=== PATIENT | female | born 1990 | race Caucasian/White ===

== ENCOUNTER 2018-07-02 07:49 | Emergency (ER) | payer OTHER ==
[2018-07-02] MEDS: IBUPROFEN 800 MG TAB PO (08:36)
[2018-07-02] MEDS: ACETAMINOPHEN 500 MG TAB PO (08:37)
== END 2018-07-02 08:54 | disposition home or self-care (01) ==
LOC: FTE 07:49
DX: H66.91 Otitis media, unspecified, right ear (principal); R09.81 Nasal congestion; J45.909 Unspecified asthma, uncomplicated; F17.210 Nicotine dependence, cigarettes, uncomplicated
CPT/HCPCS: 99283; Z7502

== ENCOUNTER 2018-07-31 23:07 | Emergency (ER) | payer OTHER | END 2018-08-01 02:11 | disposition home or self-care (01) | LOC: FTE 23:07 | DX: S61.211A Laceration without foreign body of left index finger without damage to nail, initial encounter (principal); X83.8XXA Intentional self-harm by other specified means, initial encounter; Y92.9 Unspecified place or not applicable | CPT/HCPCS: 12001; 99283-25 ==

== ENCOUNTER 2018-10-29 14:47 | Inpatient (IN) | payer OTHER ==
[2018-10-29] MEDS: SOD CHLORIDE 0.9% 1,000 ML IV ×2 (16:21→19:28)
[2018-10-29] MEDS: ONDANSETRON 4 MG INJ IV (16:21)
[2018-10-29] MEDS: KETOROLAC 15 MG INJ IV (16:25)
[2018-10-29 16:28] LABS: ADD MAN DIFF? NO
[2018-10-29 16:32] LABS: ABNORMAL IP MESSAGE 1; BASOPHIL # 0.1 10^3/ul (0.0-0.1); BASOPHILS % 0.5 % (0.0-2.0); EOSINOPHILS # 0.4 10^3/ul (0.0-0.5); EOSINOPHILS % 4.5 % (0.0-7.0); HEMATOCRIT 40.5 % (37.0-47.0); HEMOGLOBIN 14.2 g/dl (12.0-16.0); LYMPHOCYTES # 2.3 10^3/ul (0.8-2.9); LYMPHOCYTES % 23.7 % (15.0-51.0); MEAN CORPUSCULAR HEMOGLOBIN 30.3 pg (29.0-33.0); MEAN CORPUSCULAR HGB CONC 35.1 g/dl (32.0-37.0); MEAN CORPUSCULAR VOLUME 86.5 fl (82.0-101.0); MEAN PLATELET VOLUME 13.3 fl (7.4-10.4); MONOCYTE # 0.4 10^3/ul (0.3-0.9); MONOCYTES % 4.3 % (0.0-11.0); NEUTROPHIL # 6.5 10^3/ul (1.6-7.5); NEUTROPHILS % 66.8 % (39.0-77.0); PLATELET COUNT 113 10^3/UL (140-415); RED BLOOD COUNT 4.68 10^6/ul (4.20-5.40); RED CELL DISTRIBUTION WIDTH 12.5 % (11.5-14.5)
[2018-10-29 16:32] LABS: WHITE BLOOD COUNT 9.7 10^3/ul (4.8-10.8)
[2018-10-29 16:40] LABS: ADD UMIC NO; UR ASCORBIC ACID NEGATIVE (NEGATIVE); UR BACTERIA FEW /HPF (NONE SEEN); UR BILIRUBIN (Dip) NEGATIVE (NEGATIVE); UR BLOOD (Dip) NEGATIVE (NEGATIVE); UR CLARITY SLIGHTLY CLOUDY (CLEAR); UR COLOR YELLOW (YELLOW); UR GLUCOSE (Dip) NEGATIVE (NEGATIVE); UR KETONES (Dip) TRACE mg/dL (NEGATIVE); UR LEUKOCYTE ESTERASE (Dip) NEGATIVE Leu/ul (NEGATIVE); UR MUCUS FEW /HPF (NONE SEEN); UR NITRITE (Dip) NEGATIVE (NEGATIVE); UR RBC 1 /HPF (0-5); UR SPECIFIC GRAVITY (Dip) 1.027 (1.003-1.030); UR SQUAMOUS EPITHELIAL CELL FEW /HPF (FEW); UR TOTAL PROTEIN (Dip) NEGATIVE (NEGATIVE); UR UROBILINOGEN (Dip) 1+ mg/dL (NEGATIVE); UR WBC 2 /HPF (0-5)
[2018-10-29 16:51] LABS: ALANINE AMINOTRANSFERASE 28 IU/L (13-69); ALBUMIN 4.2 g/dl (3.3-4.9); ALBUMIN/GLOBULIN RATIO 1.13; ALKALINE PHOSPHATASE 71 IU/L (42-121); ANION GAP 8 (5-13); ASPARTATE AMINO TRANSFERASE 18 IU/L (15-46); BILIRUBIN,INDIRECT 0.9 mg/dl (0-1.1); BILIRUBIN,TOTAL 0.9 mg/dl (0.2-1.3); BLOOD UREA NITROGEN 13 mg/dl (7-20); CALCIUM 9.6 mg/dl (8.4-10.2); CARBON DIOXIDE 30 mmol/L (21-31); CHLORIDE 105 mmol/L (97-110); CREATININE 0.77 mg/dl (0.44-1.00); Estimated GFR > 60 mL/min (>60); GLUCOSE 110 mg/dl (70-220); LIPASE 96 U/L (23-300); SODIUM 143 mmol/L (135-144); TOTAL PROTEIN 7.9 g/dl (6.1-8.1)
[2018-10-29 16:56] LABS: INR 0.96; PROTIME 12.9 Sec (11.9-14.9)
[2018-10-29 16:57] LABS: PARTIAL THROMBOPLASTIN TIME 34.6 Sec (23.0-35.0)
[2018-10-29] MEDS: IOHEXOL 300MG/ML 150 ML BTL (17:20)
[2018-10-29] MEDS: SOD CHLORIDE 0.9% 100 ML (17:20)
[2018-10-29] MEDS: PIPER-TAZO 3.375 GM IV (PMX) 100 ML IVPB (18:12)
[2018-10-29] MEDS ORDERED: ONDANSETRON 4 MG INJ IV ×3 (18:30→22:30)
[2018-10-29] MEDS ORDERED: NACL 0.9% 3 ML SYG IV (18:30)
[2018-10-29] MEDS ORDERED: morphine 2 MG INJ IV (18:30)
[2018-10-29] MEDS ORDERED: ALBUTEROL/IPRATROPIUM (NEB) 3 ML AMP HHN ×2 (19:00→20:00)
[2018-10-29] MEDS: morphine 2 MG INJ IV (19:13)
[2018-10-29] MEDS ORDERED: BUPIVACAINE 0.5% (SDV) 30 ML INJ (20:36)
[2018-10-29] MEDS ORDERED: PROPOFOL 20 ML (20:50)
[2018-10-29] MEDS ORDERED: SUCCINYLCHOLINE CHLORIDE 100 MG/5 ML SYG IV (20:50)
[2018-10-29] MEDS ORDERED: ONDANSETRON 4 MG INJ (20:50)
[2018-10-29] MEDS ORDERED: MIDAZOLAM 1 MG/ML 2 ML INJ (20:50)
[2018-10-29] MEDS ORDERED: METOCLOPRAMIDE 10 MG INJ (20:50)
[2018-10-29] MEDS ORDERED: ROPIVACAINE 0.5 % 30 ML VIAL (20:50)
[2018-10-29] MEDS ORDERED: LABETALOL HCL 20MG INJ IV (21:00)
[2018-10-29] MEDS ORDERED: CEFAZOLIN 1 GM INJ (21:00)
[2018-10-29] MEDS ORDERED: MEPERIDINE 25 MG INJ IV (21:00)
[2018-10-29] MEDS ORDERED: DIPHENHYDRAMINE 50 MG INJ IV (21:00)
[2018-10-29] MEDS ORDERED: hydrALAzine 20 MG INJ IV (21:00)
[2018-10-29] MEDS ORDERED: DESFLURANE 15 MIN (21:00)
[2018-10-29] MEDS ORDERED: KETOROLAC 30 MG INJ IV (21:00)
[2018-10-29] MEDS ORDERED: OXYCODONE/ACETAMINOPHEN (5/325) TAB PO ×2 (21:00)
[2018-10-29] MEDS ORDERED: HYDROmorphONE 1 MG/5 ML IV SYRINGE IV ×3 (21:00)
[2018-10-29] MEDS ORDERED: FENTAnyl 50 MCG/ML VIAL IV ×3 (21:00)
[2018-10-29] MEDS: BUPIVACAINE 0.5%/EPI (SDV) 30 ML INJ (21:35)
[2018-10-29] MEDS ORDERED: GLYCOPYRROLATE 0.4 MG INJ (22:21)
[2018-10-29] MEDS ORDERED: NEOSTIGMINE 3 MG/3 ML SYRINGE (22:21)
[2018-10-29] MEDS ORDERED: ACETAMINOPHEN 325 MG TAB PO (22:30)
[2018-10-29] MEDS ORDERED: IBUPROFEN 600 MG TAB PO (22:30)
[2018-10-30] MEDS: FAMOTIDINE 20 MG INJ IV ×2 (00:14→09:00)
[2018-10-30] MEDS: PIPER-TAZO 3.375 GM IV (PMX) 100 ML IVPB ×3 (00:29→12:38)
[2018-10-30] MEDS: D5-NS + KCL 20 MEQ 1,000 ML IV ×2 (00:53→08:01)
[2018-10-30] MEDS: FLUTICASONE 0.05% 16 GM NAS SPRAY NASAL ×3 (00:53→20:45)
[2018-10-30 06:01] LABS: ADD MAN DIFF? NO
[2018-10-30 06:09] LABS: ABNORMAL IP MESSAGE 1; BASOPHILS % 0.3 % (0.0-2.0); EOSINOPHILS # 0.1 10^3/ul (0.0-0.5); EOSINOPHILS % 0.7 % (0.0-7.0); HEMATOCRIT 35.2 % (37.0-47.0); HEMOGLOBIN 12.2 g/dl (12.0-16.0); LYMPHOCYTES # 1.6 10^3/ul (0.8-2.9); LYMPHOCYTES % 17.6 % (15.0-51.0); MEAN CORPUSCULAR HEMOGLOBIN 30.1 pg (29.0-33.0); MEAN CORPUSCULAR HGB CONC 34.7 g/dl (32.0-37.0); MEAN CORPUSCULAR VOLUME 86.9 fl (82.0-101.0); MEAN PLATELET VOLUME 13.4 fl (7.4-10.4); MONOCYTE # 0.4 10^3/ul (0.3-0.9); MONOCYTES % 4.7 % (0.0-11.0); NEUTROPHIL # 6.9 10^3/ul (1.6-7.5); NEUTROPHILS % 76.4 % (39.0-77.0); PLATELET COUNT 98 10^3/UL (140-415); RED BLOOD COUNT 4.05 10^6/ul (4.20-5.40); RED CELL DISTRIBUTION WIDTH 12.3 % (11.5-14.5)
[2018-10-30 06:13] LABS: POSITIVE DIFF @See below
[2018-10-30 06:53] LABS: ALANINE AMINOTRANSFERASE 25 IU/L (13-69); ALBUMIN 3.1 g/dl (3.3-4.9); ALKALINE PHOSPHATASE 51 IU/L (42-121); ANION GAP 5 (5-13); ASPARTATE AMINO TRANSFERASE 15 IU/L (15-46); BILIRUBIN,INDIRECT 0.6 mg/dl (0-1.1); BILIRUBIN,TOTAL 0.6 mg/dl (0.2-1.3); BLOOD UREA NITROGEN 8 mg/dl (7-20); CARBON DIOXIDE 23 mmol/L (21-31); CHLORIDE 112 mmol/L (97-110); CHOL/HDL RATIO 4.6 RATIO; CHOLESTEROL 134 mg/dl (100-200); CREATININE 0.68 mg/dl (0.44-1.00); Estimated GFR > 60 mL/min (>60); GLUCOSE 130 mg/dl (70-220); HDL CHOLESTEROL 29 mg/dl (34-82); LDL CHOLESTEROL,CALCULATED 93 mg/dl; MAGNESIUM 1.8 mg/dl (1.7-2.5); POTASSIUM 4.1 mmol/L (3.5-5.1); SODIUM 140 mmol/L (135-144); TOTAL PROTEIN 6.2 g/dl (6.1-8.1); TRIGLYCERIDES 62 mg/dl (0-149)
[2018-10-30] MEDS: ENOXAPARIN 40 MG/0.4 ML SYG SC (07:04)
[2018-10-30] MEDS: HYDROmorphONE 0.5 MG/0.5 ML SYG IV (08:51)
[2018-10-30] MEDS: HYDROCODONE/APAP (5/325) TAB PO ×2 (17:22→21:43)
[2018-10-30] MEDS: CEPHALEXIN 500 MG CAP PO (21:42)
[2018-10-31 05:45] LABS: ADD MAN DIFF? NO
[2018-10-31 05:55] LABS: ABNORMAL IP MESSAGE 1; BASOPHIL # 0.1 10^3/ul (0.0-0.1); BASOPHILS % 0.7 % (0.0-2.0); EOSINOPHILS # 0.3 10^3/ul (0.0-0.5); EOSINOPHILS % 4.9 % (0.0-7.0); HEMATOCRIT 37.8 % (37.0-47.0); HEMOGLOBIN 12.9 g/dl (12.0-16.0); LYMPHOCYTES # 2.8 10^3/ul (0.8-2.9); LYMPHOCYTES % 40.3 % (15.0-51.0); MEAN CORPUSCULAR HEMOGLOBIN 29.9 pg (29.0-33.0); MEAN CORPUSCULAR HGB CONC 34.1 g/dl (32.0-37.0); MEAN CORPUSCULAR VOLUME 87.7 fl (82.0-101.0); MEAN PLATELET VOLUME 13.2 fl (7.4-10.4); MONOCYTE # 0.4 10^3/ul (0.3-0.9); MONOCYTES % 5.3 % (0.0-11.0); NEUTROPHIL # 3.4 10^3/ul (1.6-7.5); NEUTROPHILS % 48.5 % (39.0-77.0); PLATELET COUNT 111 10^3/UL (140-415); RED BLOOD COUNT 4.31 10^6/ul (4.20-5.40); RED CELL DISTRIBUTION WIDTH 12.4 % (11.5-14.5)
[2018-10-31 05:55] LABS: WHITE BLOOD COUNT 6.9 10^3/ul (4.8-10.8)
[2018-10-31] MEDS: CEPHALEXIN 500 MG CAP PO ×2 (05:59→13:20)
[2018-10-31 06:10] LABS: POSITIVE DIFF @See below
[2018-10-31 06:22] LABS: ANION GAP 4 (5-13); BLOOD UREA NITROGEN 9 mg/dl (7-20); CALCIUM 8.4 mg/dl (8.4-10.2); CARBON DIOXIDE 28 mmol/L (21-31); CHLORIDE 108 mmol/L (97-110); CREATININE 0.77 mg/dl (0.44-1.00); Estimated GFR > 60 mL/min (>60); GLUCOSE 103 mg/dl (70-220); PHOSPHORUS 3.3 mg/dl (2.5-4.9); POTASSIUM 4.5 mmol/L (3.5-5.1); SODIUM 140 mmol/L (135-144)
[2018-10-31] MEDS: ENOXAPARIN 40 MG/0.4 ML SYG SC (06:24)
[2018-10-31] MEDS: FLUTICASONE 0.05% 16 GM NAS SPRAY NASAL (08:37)
[2018-10-31] MEDS: HYDROCODONE/APAP (5/325) TAB PO ×2 (08:40→13:20)
== END 2018-10-31 14:11 | disposition home or self-care (01) | DRG 343 ==
LOC: FTE 14:47 → PP2 18:25
PROC: 0DTJ4ZZ Resection of Appendix, Percutaneous Endoscopic Approach (ICD-10-PCS; principal; 2018-10-29 20:30)
DX: K35.80 Unspecified acute appendicitis (principal); D69.6 Thrombocytopenia, unspecified; G89.18 Other acute postprocedural pain; Z72.0 Tobacco use
CPT/HCPCS: 74177; 80048; 80053; 80061; 81001; 81003; 81025; 83036; 83690; 83735; 84100; 85025; 85610; 85730; 88304